=== PATIENT | male | born 1950 | race Caucasian/White ===

== ENCOUNTER 2019-06-29 01:40 | Outpatient (CLI) | payer OTHER, SELFPAY ==
[2019-06-29 11:11] LABS: Hemoglobin A1C 6.1 % (4.5-6.2)
[2019-06-29 11:13] LABS: ALT 25 U/L (16-63); AST 18 U/L (15-37); Alkaline Phosphatase 102 U/L (46-116); Anion Gap 7.8 mmol/L (3-11); BUN 26 mg/dL (7-18); Bilirubin, Total 0.5 mg/dL (0.2-1.0); CO2 28.2 mmol/L (21.0-32.0); Calcium 8.6 mg/dL (8.5-10.1); Calculated LDL 151 mg/dL; Chloride 104 mmol/L (98-107); Cholesterol 204 mg/dL (<200); Glucose 120 mg/dL (74-106); HDL Cholesterol 35 mg/dL (40-60); Potassium 4.5 mmol/L (3.5-5.1); Sodium 140 mmol/L (136-145); Triglyceride 94 mg/dL (<150)
== END 2019-06-29 02:00 ==
PROVIDERS: PCP Family Medicine; Visit Provider Family Medicine
DX: Z00.00 Encounter for general adult medical examination without abnormal findings (principal); R73.01 Impaired fasting glucose; E78.00 Pure hypercholesterolemia, unspecified; K21.9 Gastro-esophageal reflux disease without esophagitis
CPT/HCPCS: 36415; 80053; 80061; 83036

== ENCOUNTER 2020-06-05 11:09 | Day surgery (SDC) | payer OTHER, SELFPAY ==
--- NOTE | 2020-06-05 07:19 | COLE_ITS ---
Date of service: 06/05/20 Time of Service: 12: Colonoscopy Report Date of procedure: 06/05/20 Pre-op diagnosis general: Colon Cancer Screening Post-op diagnosis procedure note: same Procedure: Colonoscopy Surgeon: Ligia Jennings Anesthesia proc note operative: other (General/ASA 2/jakob Edmond, KERRI) Estimated blood loss (mL): 0 Pathology: none sent Complications: None Disposition: same day Indications: The patient is here for Colonoscopy pre-op. His last screening was in 2008 and was remarkable for diverticulosis. He has a family history of colon cancer in his father at the age of 90 and maternal grandfather in his 70s. He has not had any bowel habit changes. -Discussed colonoscopy bowel prep as well as the procedure. Discussed possible complications of the procedure to include bleeding, pain, perforation, missed small lesion/polyp, sore throat, aspiration and adverse reaction to the medications. Questions were answered to patient?s satisfaction. No guarantees were implied or given. Prep: Miralax/Dulcolax Procedure Start Time: :31 Procedure End Time: 12:47 Retraction Time: 12 minutes Findings: Diverticulosis of the sigmoid colon Procedure Description: After informed consent was obtained the patient was ta sunil to the procedure room and placed in a left decubitous position. Monitors were applied and a time out was done. The patients name, date of , procedure, allergies to medications and metal in their body was reviewed. The patient was then sedated. Once sedated and comfortable a rectal exam was done. External exam was normal. Internal exam revealed a normal sphincter tone and no palpable masses. The prostate was smooth and slightly enlarged. The scope was then introduced and retro-flexed. No internal hemorrhoids were identified. The scope was then advanced to the cecum without difficulty. The ileocecal valve and appendiceal orifice were identified. The prep was adequate. The scope was then slowly retracted over 12 minutes back into the rectum. There were no polyps identified. There was moderate diverticulosis of the sigmoid colon. The scope was removed and the patient was woken up and taken back to Same day surgery in stable condition. The patient tolerated the procedure well and there were no immediate complications. Follow up: The patient should follow up in 10 years unless they develop changes in bowel habits or other new gastrointestinal complaints.
--- NOTE | 2020-06-05 07:19 | W.PM.DSUDISC ---
Discharge Plan Disposition Patient Disposition: HOME Condition: Good Discharge Details Reason For Visit: colonoscopy Attending Provider: Ligia Jennings Primary Care Provider: Clemente Hidalgo Home Meds and New Rx's Prescriptions: Continued aspirin [Aspir-81] 81 MG tablet,delayed release (DR/EC) 81 mg PO DAILY RF: 0 atorvastatin [Lipitor] 20 mg tablet 20 mg PO HS Qty: 90 RF: 4 Discontinued polyethylene glycol 3350 17 gram/dose powder 238 g PO ONCE Qty: 238 RF: 0 bisacodyl [Dulcolax (bisacodyl)] 5 mg tablet,delayed release (DR/EC) 5 mg PO ONCE Qty: 4 RF: 0 Discharge Instructions Instructions: Diverticulosis (DC) Additional Instructions: Findings: diverticulosis Follow up: 10 years Please call if you develop: fevers >101.5 Nausea or Vomiting Abdominal pain that is not transient DAY SURGERY UNIT POST ENDOSCOPY INSTRUCTIONS 1. Because there will be medication in your system for the next 24 hours, you may feel a little sleepy. Your coordination will be affected. Therefore: a. Do not drive or operate dangerous equipment for 24 hours. b. Do not drink alcohol beverages for 24 hours (not even beer). c. Plan to go home and rest for the day. 2. Generally there are no restrictions on your activity after a day or so has gone by, but you may feel a bit fatigued for a few days. 3 After you arrive home you may have a light meal and return to a normal diet as you can tolerate it without feeling sick to your stomach. 4. After surgery, you may feel pain or discomfort. This should be only transient, but if it persists please contact your doctor. 5. If there are any questions regarding the findings of your procedure, please feel free to contact your doctor. 6. If you are unable to contact your doctor with a problem, contact the hospital at [phone]. 7. Continue all your regular medications unless directed otherwise. I understand the above instructions and have no questions. Signature of Patient or Responsible Adult Escort Date/Time Name of Responsible Adult Escort Signature of Nurse Date/Time Stand Alone Forms: Sara Patrick (DSU) Activity:: Activity as Tolerated Diet:: High fiber diet Discharge Orders Discharge Orders: Discharge Order (Routine); Ordered 06/05/20 Ordered By: Ligia Jennings
[2020-06-05 11:15] VITALS: BP 150/86; PULSE 99; RESP 18; TEMP 36.4; O2SAT 98
[2020-06-05] MEDS: Lactated Ringers 1,000 ML 80 ML IV (11:36)
[2020-06-05 13:23] VITALS: BP 115/76; PULSE 64; RESP 18; TEMP 36.1; O2SAT 99
== END 2020-06-05 13:50 | disposition home or self-care (01) ==
LOC: SUR 11:09
PROVIDERS: PCP Family Medicine; Visit Provider Surgery
PROC: 0DJD8ZZ Inspection of Lower Intestinal Tract, Via Natural or Artificial Opening Endoscopic (ICD-10-PCS; CPT 45378; principal; 2020-06-05 11:15)
DX: Z12.11 Encounter for screening for malignant neoplasm of colon (principal); K57.30 Diverticulosis of large intestine without perforation or abscess without bleeding; Z80.0 Family history of malignant neoplasm of digestive organs
CPT/HCPCS: 45378

== ENCOUNTER 2021-03-20 03:22 | Outpatient (CLI) | payer OTHER, SELFPAY ==
[2021-03-20 12:37] LABS: Anion Gap 9.9 mmol/L (3-11); BUN 20 mg/dL (7-18); CO2 27.1 mmol/L (21.0-32.0); CREATININE 0.9 mg/dL (0.70-1.30); Calculated LDL 122 mg/dL (<100); Chloride 106 mmol/L (98-107); Cholesterol 181 mg/dL (<200); Glucose 105 mg/dL (74-106); HDL Cholesterol 38 mg/dL (40-60); Potassium 4.4 mmol/L (3.5-5.1); Sodium 143 mmol/L (136-145); Triglyceride 109 mg/dL (<150)
== END 2021-03-20 03:23 | disposition home or self-care (01) ==
LOC: LOS 03:23
PROVIDERS: PCP Family Medicine; Visit Provider Family Medicine
DX: R73.01 Impaired fasting glucose (principal); E78.00 Pure hypercholesterolemia, unspecified
CPT/HCPCS: 36415; 80048; 80061

== ENCOUNTER 2021-11-05 04:15 | Outpatient (CLI) | payer BC, SELFPAY ==
[2021-11-05 22:07] LABS: PSA, Screening 0.8 ng/mL (<=6.5)
[2021-11-06 10:10] LABS: Hepatitis C Ab w Rflx HCV PCR Negative (Negative)
== END 2021-11-05 04:16 | disposition home or self-care (01) ==
LOC: LBO 04:15
PROVIDERS: PCP Family Medicine; Visit Provider Family Medicine
DX: Z00.00 Encounter for general adult medical examination without abnormal findings (principal); Z11.59 Encounter for screening for other viral diseases; Z12.5 Encounter for screening for malignant neoplasm of prostate; Z91.89 Other specified personal risk factors, not elsewhere classified
CPT/HCPCS: 36415; 84153; 86803

== ENCOUNTER → 2022-04-02 01:03 | Outpatient (CLI) | payer BC, SELFPAY ==
--- NOTE | 2022-04-02 07:15 | DI.RAD_ITS ---
Exam(s) XR KNEE RT 3V AP,LAT,HARINDER EXAM: XR KNEE RT 3V AP,LAT,HARINDER CLINICAL HISTORY: hip and knee pain, chronic arthralgias, M25.561 TECHNIQUE: COMPARISON: CR XR KNEE LT 3V AP,LAT,HARINDER from 04/02/2022 FINDINGS: Three views were obtained. There is moderate narrowing of the medial tibiofemoral cartilaginous join t space. Otherwise cartilaginous joint spaces are fairly well maintained. There is a probable small knee joint effusion. There are slight marginal osteophytes of all 3 joints of the knee. No other s ignificant bony abnormality seen. IMPRESSION: DJD predominantly involving medial tibiofemoral joint. RADIATION DOSE DELIVERED: Total DLP
--- NOTE | 2022-04-02 07:15 | DI.RAD_ITS ---
Exam(s) XR KNEE LT 3V AP,LAT,HARINDER EXAM: XR KNEE LT 3V AP,LAT,HARINDER CLINICAL HISTORY: hip/knee pain, chronic arthralgias, M25.562 TECHNIQUE: COMPARISON: CR LEFT KNEE 3 VIEW COMPLETE from 06/04/2010 FINDINGS: Three views were obtained. There is moderate narrowing of the medial tibiofemoral cartilaginous join t space. Otherwise cartilaginous joint spaces are fairly well maintained. Mild marginal osteophytes of the joints of the knee noted, most marked at the patellofemoral joint. No gross joint effusion s een on the lateral view. IMPRESSION: DJD predominantly involving medial tibiofemoral joint. RADIATION DOSE DELIVERED: Total DLP
--- NOTE | 2022-04-02 07:27 | DI.RAD_ITS ---
Exam(s) XR HIP PELVIS ADULT BL EXAM: XR HIP PELVIS ADULT BL CLINICAL HISTORY: hip and knee pain, chronic arthralgias, M25.551, M25.552 TECHNIQUE: COMPARISON: CR LEFT HIP COMPLETE from 06/04/2010 FINDINGS: Three views were obtained. There appears to be mild narrowing of the cartilaginous joint spaces of b oth hips. There is minimal marginal osteophyte formation of the acetabulum bilaterally. No other bon y or soft tissue abnormality seen. IMPRESSION: Mild DJD both hips. RADIATION DOSE DELIVERED: Total DLP
== END ==
PROVIDERS: PCP Family Medicine; Visit Provider Family Medicine
DX: M25.551 Pain in right hip (principal); M25.552 Pain in left hip; M25.561 Pain in right knee; M25.562 Pain in left knee; G89.29 Other chronic pain; M16.0 Bilateral primary osteoarthritis of hip; M17.0 Bilateral primary osteoarthritis of knee; M25.461 Effusion, right knee
CPT/HCPCS: 73521; 73562

== ENCOUNTER → 2023-04-08 15:17 | Outpatient (CLI) | payer BC, SELFPAY ==
--- NOTE | 2023-04-08 11:30 | DI.RAD_ITS ---
Exam(s) XR LUMBAR SPINE COMPLETE EXAM: XR LUMBAR SPINE COMPLETE CLINICAL HISTORY: LUMBAR BACK PAIN/LOW BACK PAIN-M54.50. TECHNIQUE: 2D digital imaging was performed of the lumbar spine. Five images were obtained. AP, la teral, right oblique, left oblique and L5-S1 spot views were obtained. COMPARISON: No exams were available for comparison FINDINGS: BONES: No fracture or destructive lesion. There are endplate osteophytes throughout the lumbar spine. Degenerative changes of the facets are seen at L5-S1. DISKS: Mild disc space narrowing from T12-L1 through L2-L3. ALIGNMENT: Lumbar spinal alignment is within normal limits. No spondylolysis or spondylolisthesis. SOFT TISSUE: Atherosclerosis is present. IMPRESSION: Moderate degenerative changes of the lumbar spine. DATA REPOSITORY: RADIATION DOSE DELIVERED:
== END ==
PROVIDERS: PCP Family Medicine; Visit Provider Family Medicine
DX: M54.50 Low back pain, unspecified (principal); M51.36 Other intervertebral disc degeneration, lumbar region
CPT/HCPCS: 72110

== ENCOUNTER 2023-09-30 17:50 | Outpatient (REF) | payer BC, SELFPAY | END 2023-09-30 17:51 | disposition home or self-care (01) | LOC: NCHCN 17:50 | PROVIDERS: PCP Family Medicine; Visit Provider Nurse Practitioner Family | DX: N50.819 Testicular pain, unspecified (principal); N50.89 Other specified disorders of the male genital organs; B96.29 Other Escherichia coli [E. coli] as the cause of diseases classified elsewhere | CPT/HCPCS: 87077; 87086; 87186 ==

== ENCOUNTER 2024-04-20 02:37 | Outpatient (CLI) | payer BC, SELFPAY ==
[2024-04-20 10:08] LABS: Bilirubin Negative (Negative); Blood Negative (Negative); Clarity Clear (Clear); Glucose Negative (Negative); Ketones Negative (Negative); Leukocyte Esterase Negative (Negative); Nitrite Negative (Negative); Specific Gravity >= 1.030 (1.005-1.025); Urobilinogen 0.2 mg/dL (Up to 0.2); pH 5.5 (5-8)
[2024-04-20 10:30] LABS: Hemoglobin A1C 5.9 % (<5.7)
[2024-04-20 10:35] LABS: ALT 22 U/L (16-63); AST 23 U/L (15-37); Alkaline Phosphatase 109 U/L (46-116); Anion Gap 9.3 mmol/L (3-11); BUN 34 mg/dL (7-18); Bilirubin, Total 0.64 mg/dL (0.2-1.0); CO2 24.7 mmol/L (21.0-32.0); Calcium 8.7 mg/dL (8.5-10.1); Calculated LDL 75 mg/dL (<100); Chloride 106 mmol/L (98-107); Cholesterol 133 mg/dL (<200); Estimated GFR 79.47 (mL/min/1.73m2); Glucose 127 mg/dL (74-106); HDL Cholesterol 46 mg/dL (40-60); Potassium 4.2 mmol/L (3.5-5.1); Sodium 140 mmol/L (136-145); Total Protein 7.3 g/dL (6.4-8.2); Triglyceride 62 mg/dL (<150)
[2024-04-20 21:34] LABS: PSA, Screening 1.5 ng/mL (<=6.5)
[2024-04-21 13:11] LABS: Chlamydia Result Negative (Negative); GC Result Negative (Negative)
[2024-04-22 13:20] LABS: Appearance Brown; Container Type 50 mL Conical; Germ Cells/mL 0.55 x10(6) (<4.00); Semen Volume 0.5 mL (>=1.5); Sperm/mL 0 sperm seen x10(6) (>=15.0); Study Type Semen; WBC/mL 1.65 x10(6) (<1.00)
== END 2024-04-20 02:38 | disposition home or self-care (01) ==
PROVIDERS: PCP Family Medicine; Visit Provider Family Medicine
DX: Z00.00 Encounter for general adult medical examination without abnormal findings (principal); R73.01 Impaired fasting glucose; Z13.6 Encounter for screening for cardiovascular disorders; E78.00 Pure hypercholesterolemia, unspecified; Z12.5 Encounter for screening for malignant neoplasm of prostate; R36.1 Hematospermia; R30.0 Dysuria; Z20.2 Contact with and (suspected) exposure to infections with a predominantly sexual mode of transmission
CPT/HCPCS: 36415; 80053; 80061; 84153; 87491; 87591; 81003; 83036; 89240; 89310

== ENCOUNTER 2025-04-15 03:46 | Outpatient (CLI) | payer BC, SELFPAY ==
--- NOTE | 2025-04-15 06:00 | DI.RAD_ITS ---
Exam(s) XR KNEE RT 3V AP,LAT,HARINDER EXAM: XR KNEE RT 3V AP,LAT,HARINDER CLINICAL HISTORY: chronic pain rt knee,m25.561. TECHNIQUE: 2D digital imaging was performed. COMPARISON: CR XR KNEE RT 3V AP,LAT,HARINDER from 04/02/2022 FINDINGS: 3 views No evidence of fracture although there is a small-moderate size joint effusion noted. There is narrowing of the medial compartment which has slightly further increased when compared. To March 2022, seen on the weight-bearing view. The lateral compartment exhibits normal height. Some degenerative change in the patellofemoral compartment is also again noted. IMPRESSION: Further progression of degenerative narrowing of the medial compartment when compared to March 2022. There is also a joint effusion again noted. DATA REPOSITORY: RADIATION DOSE DELIVERED:
--- NOTE | 2025-04-15 06:00 | DI.RAD_ITS ---
Exam(s) XR KNEE LT 3V AP,LAT,HARINDER EXAM: XR KNEE LT 3V AP,LAT,HARINDER CLINICAL HISTORY: chronic pain lt knee,m25.562. TECHNIQUE: 2D digital imaging was performed. COMPARISON: CR XR KNEE RT 3V AP,LAT,HARINDER from 04/15/2025 FINDINGS: 3 views No evidence of acute fracture. There is a moderate size joint effusion. There is significant narrowing of the medial compartment. No marginal osteophytes. Lateral compartment exhibits normal height. Some degenerative change also noted in the patellofemoral compartment. Bone density age-appropriate. No osseous lesions. IMPRESSION: Degenerative changes in the medial patellofemoral compartments. Small-moderate size joint effusion noted. DATA REPOSITORY: RADIATION DOSE DELIVERED:
== END 2025-04-15 04:06 ==
PROVIDERS: PCP Family Medicine; Visit Provider Family Medicine
DX: M25.551 Pain in right hip (principal); M25.552 Pain in left hip; M25.561 Pain in right knee; M25.562 Pain in left knee; G89.29 Other chronic pain; M25.462 Effusion, left knee
CPT/HCPCS: 73562

== ENCOUNTER → 2025-07-04 09:13 | Outpatient (BNVA) | payer BC, SELFPAY | PROVIDERS: PCP Family Medicine; Referring Provider Family Medicine; Visit Provider Student in an Organized Health Care Education/Training Program | DX: M17.0 Bilateral primary osteoarthritis of knee (principal); M47.816 Spondylosis without myelopathy or radiculopathy, lumbar region; M51.362 Other intervertebral disc degeneration, lumbar region with discogenic back pain and lower extremity pain; M25.561 Pain in right knee; M25.651 Stiffness of right hip, not elsewhere classified; M25.652 Stiffness of left hip, not elsewhere classified | CPT/HCPCS: 99215; 20610; J1010 ==

== ENCOUNTER → 2025-08-02 10:27 | Outpatient (CLI) | payer MEDICARE, BC, SELFPAY ==
--- NOTE | 2025-08-02 07:15 | DI.MRI_ITS ---
Exam(s) MR LUMBAR SPINE WO EXAM: MR LUMBAR SPINE WO CLINICAL HISTORY: back pain,ddd,m51.362,spondylosis wo radiculopathy,m47.816. TECHNIQUE: Multiplanar multisequence MRI of the Lumbar spine was performed. COMPARISON: CR XR LUMBAR SPINE COMPLETE from 04/08/2023 FINDINGS: Bones: The last intervertebral disc space is designated the L5/S1 level for the numbering purpose of this examination. The vertebral body heights are well maintained. Alignment: Unremarkable. The marrow signal characteristics are unremarkable. Cord: The conus tip ends at the L1-2 level. It is of normal size and signal intensity. T12-L1: No focal disc herniation is present. No central spinal canal stenosis.No neural foraminal stenosis. L1-2:Mild loss of disc height. Small endplate osteophytes. Mild disc osteophytes. No focal disc herniation is present. No central spinal canal stenosis.Mild bilateral neural foraminal stenosis. L2-3:Mild loss of disc height. Small endplate osteophytes and circumferential disc bulging. Mild facet degenerative changes. No focal disc herniation is present. No central spinal canal stenosis moderate left and mild right neural foraminal stenosis. L3-4: loss of disc height, eccentric toward the right. Circumferentially projecting disc osteophytes. Mild facet degenerative changes and ligamentous hypertrophy.No focal disc herniation is present. No central spinal canal stenosis.Severe right and mild left neural foraminal stenosis. L4-5:The disc height is maintained. Small endplate osteophytes and mild diffuse disc bulging. Superimposed right paracentral disc protrusion measuring 13 by 5 x 10 millimeters. There are facet degenerative changes and ligamentous hypertrophy. Mild central spinal canal stenosis.Moderate bilateral neural foraminal stenosis. L5-S1: Mild loss of disc height eccentric toward the left where there are small osteophytes.Tiny left paracentral disc protrusion measuring 5 millimeters. There are facet degenerative changes, greater on the left. No central spinal canal stenosis.Severe left neural foraminal narrowing.No right neural foraminal stenosis. The visualized SI joints and sacrum are unremarkable. Soft tissues: The paraspinal soft tissues are unremarkable. IMPRESSION: Right paracentral disc protrusion at L4-5 causing mild central canal stenosis. There is also bilateral neural foraminal narrowing at this level. Tiny left paracentral disc protrusion at L5-S1. Severe left neural foraminal narrowing secondary to a combination of degenerative changes. Multilevel neural foraminal narrowing. DATA REPOSITORY:
== END ==
LOC: DI 10:27
PROVIDERS: PCP Family Medicine; Visit Provider Student in an Organized Health Care Education/Training Program
DX: M51.362 Other intervertebral disc degeneration, lumbar region with discogenic back pain and lower extremity pain (principal); M47.816 Spondylosis without myelopathy or radiculopathy, lumbar region
CPT/HCPCS: 72148

== ENCOUNTER 2025-08-02 12:18 | Outpatient (CLI) | payer BC, SELFPAY ==
[2025-08-02 12:24] LABS: ESR 10 mm/hr (0-20)
[2025-08-02 12:53] LABS: C-Reactive Protein < 0.50 mg/dL (<=0.50)
== END 2025-08-02 12:19 | disposition home or self-care (01) ==
LOC: LBO 12:19
PROVIDERS: PCP Family Medicine; Visit Provider Student in an Organized Health Care Education/Training Program
DX: M51.362 Other intervertebral disc degeneration, lumbar region with discogenic back pain and lower extremity pain (principal); M47.816 Spondylosis without myelopathy or radiculopathy, lumbar region
CPT/HCPCS: 36415; 85652; 72148; 86038; 86140; 86431